=== PATIENT | male | born 1980 | race Two or more races ===

== ENCOUNTER 2017-10-14 11:58 | Emergency (ER) | payer SELFPAY ==
--- NOTE | 2017-10-14 12:26 | EDPHY ---
General - Diagnostics Imaging: I viewed and interpreted images myself <Ember Muñoz - Last Filed: 10/14/17 14:49> - History Smoking Status: Never smoked <Flaco Kirkland - Last Filed: 10/15/17 16:18> Time Seen by Provider: 10/14/17 12:18 Narrative: CHIEF COMPLAINT: Left knee pain HISTORY OF PRESENT ILLNESS: Patient presents with complaints of left knee pain. He says he awoke last night 130 a.m. in the morning with severe left knee pain. He has had some swelling and warmth to the left knee. It is so severe that he cannot walk. He has been subjectively febrile. Nausea but no vomiting. No chest back or abdominal pain. No rash. No urethral discharge or pain. No urinary complaints. No eye pain or visual disturbance. He has had no trauma or injury to that knee. He has had no puncture laceration in the location of the left knee. He has no other associated complaints or modifying factors. REVIEW OF SYSTEMS: Ten systems reviewed and are negative unless otherwise noted in the HPI PCP: Dr. Fer Gao SPECIALISTS: None PAST MEDICAL HISTORY: Denies any diagnoses PAST SURGICAL HISTORY: No surgical history SOCIAL HISTORY: Nonsmoker. Lives here independently with his spouse. 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 Well-developed well-nourished. Head: normocephalic, atraumatic Eyes: Pupils equal and round, no conjunctival pallor or injection ENT, Mouth: Mucous membranes moist Neck: Normal inspection, supple, non-tender Respiratory: Lungs are clear to auscultation Cardiovascular: Tachycardic rate. Regular rhythm. No murmur. Neurological: A&O, nonfocal, normal gait Skin: Warm and dry, no rash. There is warmth to the left anterior knee without cellulitis or fluctuance. Extremities: Significant tenderness to palpation of the left knee in the anterior joint line. There is palpable fullness. Unable to fully range the left knee active or passive range of motion. He is neuro intact distal to the area. Psychiatric: Mood and affect normal DIFFERENTIAL DIAGNOSES: Including but not limited to septic joint, cellulitis, abscess, osteomyelitis, fracture, sprain, strain MDM: 12:25 p.m. Atraumatic left knee pain with swelling and subjective fever at home. He has no chest pain or shortness of breath. He has some warmth to the knee but no erythema or obvious cellulitis. Difficult to fully range the left knee due to pain and swelling. He is tachycardic but not tachypneic. He is afebrile here. I have ordered laboratory studies including blood cultures and lactic acid due to tachycardia reported fever at home. There is a high suspicion of possible septic joint given the lack range of motion and pain. X-ray ordered. IV fluid pain medication ordered. I will discuss with attending physician. 1:00 p.m. Lactic acid is elevated at 2.9. There is associated leukocytosis. I have ordered the 30 milligram/kilogram bolus of IV normal saline. I will discuss with Dr. Muñoz further. I have also reviewed the plain film with Dr. Muñoz. 1:[address] Muñoz has evaluated the patient and suspects infected bursa and appreciates prepatellar swelling but no joint effusion. She recommends aspiration of the bursa. I will perform this. The patient will still require admission the hospital she does meet sepsis criteria. He is receiving his fluid bolus and we will recheck his lactic acid. 2:00 p.m. I have attempted an aspiration of the left bursa was unsuccessful. Dr. Muñoz will perform this. 2:10 p.m. Case discussed with Dr. Suarez, hospitalist. He will admit the patient to his service. He is admitted stable condition. 2:[address] Muñoz was able to aspirate some fluid from the bursa. This has been sent for cell count, Gram stay with anaerobes in aerobes. However, the patient is now declining admission to the hospital. Dr. Muñoz and myself of both discussed risks, benefits and alternatives. The patient is willing to assume the risk and asked to be discharged home. We discuss that he may return to the emergency department any time without therapy precautions should he change his mind. We discussed that is outpatient therapy may fail, requiring that he may come back to emergency department may be much sicker if he does so. He is willing to assume this risk. We strongly recommended that he have a repeat evaluation of the wound in 48 hr. I provided the on-call orthopedist for him. He is discharged home in stable condition with pending cultures and cell counts of the aspirate. SUPERVISION: Patient was evaluated in conjunction with Dr. Muñoz. We have both examined and evaluated the patient. (Flaco Kirkland) Medical Decision Making: This patient was seen and examined by me. He presents with acute left knee pain , leukocytosis and a lactate of 2.9. Knee exam reveals no joint effusion, there is swelling and tenderness just inferior to the knee, consistent with acute bursitis. No overlying erythema and no pain with passive range of motion of the left knee. Attempt at aspiration by Flaco Kirkland and then by me. I was able to obtain a small amount of bloody fluid, unclear if this is fluid within the bursa or if it is simply blood. The fluid was sent to the lab for culture. Ancef 1 g IV given. The pt declined admission despite my urging. He is a competent decision-maker and clearly understands the risks/benefits of this decision. I strongly encouraged him to return for reassessment in 1-2 days. (Ember Muñoz) - Objective Vital Signs: Initial Vital Signs Temperature (C) 99.9 F 10/14/17 12:04 Heart Rate 122 H 10/14/17 12:04 Respiratory Rate 20 10/14/17 12:04 Blood Pressure 141/96 H 10/14/17 12:04 O2 Sat (%) 97 10/14/17 12:04 O2 Delivery Mode Room Air Allergies/Adverse Reactions: No Known Allergies Allergy (Verified 10/14/17 12:08) Home Medications: Medication Instructions Recorded Cephalexin [Keflex (*)] 500 mg PO QID #40 cap 10/14/17 Sulfamethox/Tmp 800/160 mg 2 tab PO BID 10 Days tab 10/14/17 [Bactrim Ds] oxyCODONE HCL/ACETAMINOPHEN 1 each PO Q4-6PRN PRN #15 tablet 10/14/17 [Percocet 5-325 mg Tablet] Laboratory Results: Laboratory Results 10/14/17 12:30 10/14/17 12:30 Microbiology Results: MICROBIOLOGY 10/14/17 14:40 Knee - Aspirate Gram Stain - Final Medications Given: Discontinued Medications Acetaminophen (Tylenol) 650 mg PO EDNOW ONE Stop: 10/14/17 13:20 Last Admin: 10/14/17 13:45 Dose: 650 mg Sodium Chloride (Ns) 1,000 mls @ 0 mls/hr IV EDNOW ONE; Wide Open PRN Reason: Protocol Stop: 10/14/17 12:28 Last Admin: 10/14/17 12:37 Dose: 1,000 mls Sodium Chloride (Ns) 1,700 mls @ 3,400 mls/hr 30 ml/kg infuse over 30 min ( 1700 ml) IV EDNOW ONE PRN Reason: Protocol Stop: 10/14/17 13:26 Last Admin: 10/14/17 13:05 Dose: 1,700 mls Cefazolin Sodium/Dextrose (Ancef 1 Gm (Premix)) 50 mls @ 200 mls/hr IV EDNOW ONE PRN Reason: Protocol Stop: 10/14/17 14:21 Last Admin: 10/14/17 14:26 Dose: 50 mls Morphine Sulfate (Morphine) 4 mg IVP EDNOW ONE Stop: 10/14/17 12:28 Last Admin: 10/14/17 12:37 Dose: 4 mg Departure <Ember Muñoz - Last Filed: 10/14/17 14:49> <Flaco Kirkland - Last Filed: 10/15/17 16:18> - Departure Disposition: Home, Routine, Self-Care Clinical Impression: Infection of bursa Condition: Good Instructions: Knee Bursitis (ED) Additional Instructions: 1. Keflex medication 4 times daily as prescribed. First dose this evening when you get the medication 2. Bactrim indication as prescribed twice daily. First dose when you get the medication 3. We strongly recommend that he return to work she her mind regarding admission hospital. 4. Emergency depart precautions for worsening pain, redness, warmth or fever Referrals: Adonis Morales MD [Medical Doctor] - As per Instructions Physician,Emergency DeptMD [Medical Doctor] - As per Instructions Prescriptions: Cephalexin [Keflex (*)] 500 mg PO QID #40 cap oxyCODONE HCL/ACETAMINOPHEN [Percocet 5-325 mg Tablet] 1 each PO Q4-6PRN PRN # 15 tablet PRN Reason: Pain, Breakthrough Sulfamethox/Tmp 800/160 mg [Bactrim Ds] 2 tab PO BID 10 Days tab
[2017-10-14] MEDS ORDERED: NS 1,000 ML IV ONE (12:27)
[2017-10-14 12:47] LABS: PLATELET COUNT 209 10^3/uL (150-400)
[2017-10-14 12:54] LABS: INR 0.98 (0.83-1.16); PROTIME(PATIENT) 13.2 SEC (12.0-15.0)
[2017-10-14] MEDS ORDERED: NS 1,700 ML IV ONE (12:57)
[2017-10-14] MEDS ORDERED: ACETAMINOPHEN 325 MG TAB PO ONE (13:19)
[2017-10-14] MEDS ORDERED: HYDROCODONE/APAP 5/325 TAB PO PRN (14:36)
[2017-10-14] MEDS ORDERED: PROMETHAZINE HCL 25 MG/ML INJ IVP PRN (14:36)
[2017-10-14] MEDS ORDERED: ACETAMINOPHEN 325 MG TAB PO PRN (14:36)
[2017-10-14 14:50] VITALS: BP 151/97
[2017-10-14] MEDS ORDERED: HEPARIN 5,000 UNIT/0.5 ML INJ SC SCH (22:00)
== END 2017-10-14 14:50 | disposition home or self-care (01) ==
LOC: UNDOADMIN 14:09
DX: M71.162 Other infective bursitis, left knee (principal); E86.9 Volume depletion, unspecified
CPT/HCPCS: 96374; J0690; J1644; J2270